=== PATIENT | female | born 1970 | race African-American/Black ===

== ENCOUNTER 2025-03-31 06:49 | Day surgery (SDC) | payer OTHER ==
[~2025-03-31] VITALS: Ht 157.5 cm; Wt 81.8 kg
[~2025-03-31 06:49] MED LIST: SODIUM CHLORIDE 0.9% 1,000 ML ONE
[2025-03-31] MEDS: SODIUM CHLORIDE 0.9% 1,000 ML IV ONE (07:26)
[2025-03-31] MEDS ORDERED: PROM6.2527 PO (07:45)
[2025-03-31] MEDS ORDERED: ARIP15TA27 PO (07:45)
[2025-03-31] MEDS ORDERED: DULO20CA23 PO (07:45)
[2025-03-31] MEDS ORDERED: OXYC-490 PO (07:45)
[2025-03-31] MEDS ORDERED: PRED-729 PO (07:45)
[2025-03-31] MEDS ORDERED: ATOR40TA28 PO (07:45)
[2025-03-31] MEDS ORDERED: BACL10TA PO (07:45)
[2025-03-31] MEDS ORDERED: HYDR10TA31 PO (07:45)
[2025-03-31] MEDS ORDERED: SENN-395 PO (07:45)
[2025-03-31] MEDS ORDERED: BUME1TAB50 PO (07:45)
[2025-03-31] MEDS ORDERED: DICL100G60 TP (07:45)
[2025-03-31] MEDS ORDERED: GABA-1216 PO (07:45)
[2025-03-31] MEDS ORDERED: AMLO-258 PO (07:45)
[2025-03-31] MEDS ORDERED: ESCI-8 PO (07:45)
[2025-03-31] MEDS ORDERED: BECL10.6 IH (07:45)
[2025-03-31] MEDS ORDERED: LEVO-72 PO (07:45)
[2025-03-31] MEDS ORDERED: FAMO20 PO (07:45)
[2025-03-31] MEDS ORDERED: LISI-893 PO (07:45)
[2025-03-31] MEDS ORDERED: MONT-35 PO (07:45)
[2025-03-31] MEDS ORDERED: ALBU18HF12 IH (07:45)
[2025-03-31] MEDS ORDERED: SUCR1TAB2 PO (07:45)
[2025-03-31] MEDS ORDERED: DOXY-354 PO (07:45)
[2025-03-31] MEDS ORDERED: HYDR25TA2 PO (07:45)
[2025-03-31] MEDS ORDERED: MIDAZOLAM HCL 2 MG/2 ML VIAL ONE (08:15)
[2025-03-31] MEDS ORDERED: FentaNYL CITRATE PF 100 MCG/2 ML VIAL ONE (08:15)
[2025-03-31 10:12] VITALS: PULSE 60; RESP 20; O2SAT 100
[2025-03-31] MEDS ORDERED: LIDOCAINE 4% 50 ML SOLUTION ONE (12:00)
[2025-03-31] MEDS ORDERED: LIDOCAINE 2% 11 ML JELLY ONE (12:00)
[2025-03-31] MEDS ORDERED: ALBUTEROL SULFATE 2.5 MG/0.5 ML NEB SOLUTION NEB ONE (12:00)
[2025-03-31] MEDS ORDERED: BENZOCAINE 20% 50 MCG/SPRAY 57 GM ONE (12:00)
== END 2025-03-31 12:55 | disposition home or self-care (01) ==
LOC: SURGERY 06:49
PROVIDERS: ATTEND Internal Medicine Critical Care Medicine
DX: R05.3 Chronic cough (principal); R06.2 Wheezing; R49.0 Dysphonia; R04.2 Hemoptysis; J38.4 Edema of larynx; B37.0 Candidal stomatitis; R91.8 Other nonspecific abnormal finding of lung field; J44.9 Chronic obstructive pulmonary disease, unspecified; Z79.891 Long term (current) use of opiate analgesic; Z90.49 Acquired absence of other specified parts of digestive tract; Z88.0 Allergy status to penicillin
CPT/HCPCS: 31623; 87206; 87101; 87220; 87070; 88108; 31624; 71045; 87015; J3010; J2250; J2919; J7030; J7613; Z7610